=== PATIENT | female | born 2000 | race American Indian/Alaskan Native ===

== ENCOUNTER 2021-04-02 17:47 | Emergency (ER) | payer MEDICAID ==
--- NOTE | 2021-04-02 18:05 | Emergency Department Report ---
HPI - General Chief Complaint: Extremity Injury, Lower Time Seen by Provider: 04/02/21 17:55 - HPI HPI: Room 29 The patient is a 21-year-old female present with chief complaint of right foot pain. The patient states approximate 3 hours prior to arrival she fell injuring her right foot. Patient denies loss of consciousness. Patient complains of pain to the lateral aspect of the base of the right foot only ED Past Medical Hx - Past Medical History Previous Medical History?: No - Surgical History Past Surgical History?: No - Family History Family history: no significant - Social History Smoking Status: Never Smoker Substance Use Type: None - Medications Home Medications: Home Medications Medication Instructions Recorded Confirmed Last Taken Type HYDROcodone/APAP 5-325 [[place] 1 - 2 each PO Q6HR PRN #7 tablet 04/02/21 Unknown Rx 5/325] Ibuprofen [Motrin 800 MG tab] 800 mg PO Q8HR PRN #20 tablet 04/02/21 Unknown Rx ED Review of Systems ROS: Stated complaint: RIGHT FOOT SWELLING Other details as noted in HPI Constitutional: no symptoms reported Eyes: denies: eye pain ENT: denies: throat pain Respiratory: no symptoms reported Cardiovascular: denies: chest pain Endocrine: no symptoms reported Gastrointestinal: denies: abdominal pain Genitourinary: denies: dysuria Musculoskeletal: arthralgia Neurological: denies: headache Physical Exam - Physical Exam Vital Signs: Vital Signs 04/02/21 17:52 Temperature 99 F Pulse Rate 82 Respiratory 20 Rate Blood Pressure 113/55 [Right] O2 Sat by Pulse 99 Oximetry Physical Exam: GENERAL: The patient is well-developed well-nourished female sitting in wheelchair not appearing to be in acute HEENT: Normocephalic. Atraumatic. Extraocular motions are intact. Patient has moist mucous membranes. NECK: Supple. Trachea midline CHEST/LUNGS: There is no respiratory distress noted. HEART/CARDIOVASCULAR: Regular. There is no tachycardia. 2+ right DP SKIN: There is no rash. There is no edema. There is no diaphoresis. No laceration seen NEURO: The patient is awake, alert, and oriented. The patient is cooperative. The patient has no focal neurologic deficits. The patient has normal speech. GCS 15 MUSCULOSKELETAL: There is tenderness to palpation at the base of the right fifth metatarsal. There is tenderness to palpation over the navicular. There is no tenderness to palpation of either malleoli of the right ankle ED Course Vital Signs 04/02/21 17:52 Temperature 99 F Pulse Rate 82 Respiratory 20 Rate Blood Pressure 113/55 [Right] O2 Sat by Pulse 99 Oximetry ED Medical Decision Making - Radiology Data Radiology results: report reviewed (Right foot x-ray), image reviewed (Right foot x-ray) interpreted by me: Right foot x-ray-no definite acute fracture seen. Small fragments present off of cuboid bone. They look well-corticated uncertain if this is an avulsion injury RIGHT FOOT 3 VIEW(S) INDICATION / CLINICAL INFORMATION: Pain after fall COMPARISON: None available. FINDINGS: BONES / JOINT(S): Small ossific fragments at the dorsal aspect of navicular bone seen on the lateral view may represent ligamentous avulsion. Additional small ossific fragments at the lateral aspect of the foot near the calcaneocuboid joint could also represent ligamentous avulsion. SOFT TISSUES: Mild soft tissue swelling around the ankle. ADDITIONAL FINDINGS: None. Signer Name: Bairon Peña MD Signed: 04/02/2021 5:48 PM Workstation Name: [id number] - Differential Diagnosis Right foot contusion, foot fracture Critical care attestation.: If time is entered above; I have spent that time in minutes in the direct care of this critically ill patient, excluding procedure time. ED Disposition Clinical Impression: Contusion of right foot Disposition: 01 HOME / SELF CARE / HOMELESS Is pt being admited?: No Does the pt Need Aspirin: No Condition: Stable Instructions: Contusion, [id number] Additional Instructions: Return to the emergency department should you develop worsening symptoms, in ability to tolerate food or liquids, high fever or any other concerns Prescriptions: Ibuprofen [Motrin 800 MG tab] 800 mg PO Q8HR PRN #20 tablet PRN Reason: Pain, Moderate (4-6) HYDROcodone/APAP 5-325 [[place] 5/325] 1 - 2 each PO Q6HR PRN #7 tablet PRN Reason: Pain Referrals: PRIMARY CAREMD [Primary Care Provider] - 3-5 Days MIKHAIL GARCIA MD [Staff Physician] - 3-5 Days (Dr. Garcia is an orthopedic surgeon. Please follow-up with him for further evaluation) Time of Disposition: 18:58
--- NOTE | 2021-04-02 18:53 | XRay Report ---
RIGHT FOOT 3 VIEW(S) INDICATION / CLINICAL INFORMATION: Pain after fall COMPARISON: None available. FINDINGS: BONES / JOINT(S): Small ossific fragments at the dorsal aspect of navicular bone seen on the lateral view may represent ligamentous avulsion. Additional small ossific fragments at the lateral aspect of the foot near the calcaneocuboid joint could also represent ligamentous avulsion. SOFT TISSUES: Mild soft tissue swelling around the ankle. ADDITIONAL FINDINGS: None. Signer Name: Bairon Peña MD Signed: 04/02/2021 6:48 PM Workstation Name: [id number]
[2021-04-02] MEDS ORDERED: HYDROcodone/ACETAMINOPHEN 5-325 MG TAB PO ONE (19:15)
[2021-04-02 19:36] VITALS: BP 121/76
== END 2021-04-02 19:35 | disposition home or self-care (01) ==
LOC: ED 17:47
DX: S90.32XA Contusion of left foot, initial encounter (principal); X58.XXXA Exposure to other specified factors, initial encounter; Y93.89 Activity, other specified; Y92.89 Other specified places as the place of occurrence of the external cause; Y99.8 Other external cause status
CPT/HCPCS: 99283